=== PATIENT | male | born 1980 | race Native Hawaiian/Other Pacific Islander ===

== ENCOUNTER → 2021-02-18 | Outpatient (CLI) | payer BC, OTHER ==
--- NOTE | 2021-02-18 15:48 | Diagnostic Imaging Report ---
EXAMINATION: Chest 2 views. HISTORY: COUGH,PAIN IN THROAT,HEMOPTYSIS, ACUTE PHARYNGITIS. COMPARISON: None available. FINDINGS: Heart size and pulmonary vasculature are normal. The lungs are clear without consolidation, pleural effusion, or pneumothorax. The osseous structures are intact. IMPRESSION: 1. No acute radiographic abnormality in the chest. Dictated by: Dictated on workstation # [id number]
== END ==
LOC: RAD 14:51
PROVIDERS: ATTEND Nurse Practitioner Family
DX: J02.8 Acute pharyngitis due to other specified organisms (principal); Z20.822 Contact with and (suspected) exposure to COVID-19
CPT/HCPCS: 71046